=== PATIENT | female | born 1965 | race Caucasian/White ===

== ENCOUNTER 2018-10-28 08:31 | Emergency (ER) | payer OTHER ==
[~2018-10-28] VITALS: Ht 157.5 cm; Wt 81.7 kg
[2018-10-28] MEDS ORDERED: NAPROSYN500 MG PO (09:56)
[2018-10-28 10:09] VITALS: BP 144/97
== END 2018-10-28 10:09 | disposition home or self-care (01) ==
LOC: M.ERS 08:31
DX: M77.9 Enthesopathy, unspecified (principal); M79.644 Pain in right finger(s); I10 Essential (primary) hypertension; E03.9 Hypothyroidism, unspecified

== ENCOUNTER 2020-10-21 22:38 | Emergency (ER) | payer OTHER ==
[~2020-10-21] VITALS: Ht 157.5 cm; Wt 83.9 kg
[~2020-10-21 22:38] MED LIST: NAPROSYN500 MG PO
[2020-10-21 23:23] LABS: ABSOLUTE BASOPHILS 0.1 thou/uL (0.0-0.2); ABSOLUTE EOSINOPHILS 0.4 thou/uL (0.0-0.7); ABSOLUTE LYMPHOCYTES 4.1 thou/uL (0.8-5.3); ABSOLUTE MONOCYTES 0.6 thou/uL (0.0-1.2); ABSOLUTE NEUTROPHILS 6.2 thou/uL (1.6-8.1); BASOPHILS 1.2 %; EOSINOPHILS 3.3 %; HEMATOCRIT 38.7 % (37.0-47.0); HEMOGLOBIN 13.4 gm/dL (12.0-15.0); LYMPHOCYTES 35.7 %; MCH 34.4 pg (26.0-34.0); MCHC 34.7 g/dL (28.0-37.0); MCV 99.3 fL (80.0-100.0); MONOCYTES 5.4 %; MPV 8.9 fl. (7.2-11.1); NUCLEATED RBCS 0 /100WBC; PLATELET COUNT* 299 thou/uL (150-400); POLYS 54.4 %; RDW-CV 13.6 % (10.5-14.5); WBC 11.4 thou/uL (4.0-11.0)
[2020-10-21 23:27] LABS: CALCIUM 8.6 mg/dL (8.5-10.1); CREATININE 1.1 mg/dL (0.6-1.3); POTASSIUM 3.6 mmol/L (3.5-5.1)
[2020-10-21 23:37] LABS: ALBUMIN 3.9 g/dL (3.4-5.0); TOTAL BILIRUBIN 0.2 mg/dL (<0.1-1.0); TOTAL PROTEIN 7.2 g/dL (6.4-8.2)
[2020-10-22 01:55] VITALS: BP 118/72
--- NOTE | 2020-10-22 13:50 | EKG ---
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1965 Requested By: Yoko Salguero Order Number: [id number] MD: Nico Leroy Measurements Intervals [place] Rate: 172 P: 0 PA: 111 QRS: 32 QRSD: 100 T: 195 QT: 237 QTc: 401 Interpretive Statements Supraventricular tachycardia Repolarization abnormality, prob rate related No previous ECG available for comparison Electronically Signed On 10-22-2020 13:50:48 [employer] by Nico Leroy [email or web address] <ELECTRONICALLY SIGNED> By: Nico Leroy MD, [facility] 10/22/20 1350 2245 2245 Nico Leroy MD, [facility] /EPI
--- NOTE | 2020-10-22 13:51 | EKG ---
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1965 Requested By: Yoko Salguero Order Number: [id number] Reading MD: Nico Leroy Measurements Intervals [place] Rate: 104 P: 14 VT: 162 QRS: 30 QRSD: 76 T: 179 QT: 309 QTc: 407 Interpretive Statements Sinus tachycardia Low voltage, precordial leads Repol abnrm suggests ischemia, anterolateral Compared to ECG 10/21/2020 22:45:18 Supraventricular tachycardia no longer present Electronically Signed On 10-22-2020 13:51:21 [employer] by Nico Leroy [email or web address] <ELECTRONICALLY SIGNED> By: Nico Leroy MD, FAC 10/22/20 1351 2259 2259 Nico Leroy MD, [facility] /EPI
== END 2020-10-22 01:55 | disposition home or self-care (01) ==
LOC: M.ERS 22:38
PROVIDERS: Personal Emergency Response Attendant
DX: I47.1 Supraventricular tachycardia (principal); I10 Essential (primary) hypertension; E03.9 Hypothyroidism, unspecified; Z88.0 Allergy status to penicillin